=== PATIENT | female | born 1965 | race African-American/Black ===

== ENCOUNTER 2017-12-29 02:15 | Emergency (ER) | payer OTHER ==
[~2017-12-29] VITALS: Ht 149.9 cm; Wt 153.2 kg
[2017-12-29 02:43] LABS: GLUCOSE,POINT OF CARE 246 MG/DL (70-110)
[2017-12-29] MEDS ORDERED: KETOROLAC TROMETHAMINE 30 MG/ML VIAL IVP ONE (02:45)
[2017-12-29] MEDS ORDERED: ASPIRIN 81 MG CHEWABLE TABLET PO ONE (02:45)
[2017-12-29] MEDS ORDERED: INSU100I26 SQ (02:47)
[2017-12-29] MEDS ORDERED: VITAD1000 PO (02:47)
[2017-12-29] MEDS ORDERED: ONDA4 PO (02:47)
[2017-12-29] MEDS ORDERED: ATOR40TA28 PO (02:47)
[2017-12-29] MEDS ORDERED: GABA-529 PO (02:47)
[2017-12-29] MEDS ORDERED: SIME125C81 PO (02:47)
[2017-12-29] MEDS ORDERED: INSNOV SQ (02:47)
[2017-12-29] MEDS ORDERED: METO25XL PO (02:47)
[2017-12-29] MEDS ORDERED: HYDR30CR3 TP (02:47)
[2017-12-29] MEDS ORDERED: OMEG-50 PO (02:47)
[2017-12-29] MEDS ORDERED: AZEL137S8 NASAL (02:47)
[2017-12-29] MEDS ORDERED: ALLO100T PO (02:47)
[2017-12-29] MEDS ORDERED: ALBU8.5H8 IH (02:47)
[2017-12-29] MEDS ORDERED: OMEP20 PO (02:47)
[2017-12-29] MEDS ORDERED: AMLO-511 PO (02:47)
[2017-12-29] MEDS ORDERED: BACL10TA PO (02:47)
[2017-12-29] MEDS ORDERED: ISOS30TA6 PO (02:47)
[2017-12-29] MEDS ORDERED: MONT10TA21 PO (02:47)
[2017-12-29] MEDS ORDERED: ASPI-1182 PO (02:47)
[2017-12-29] MEDS ORDERED: IPRA3AMP4 NEB (02:47)
[2017-12-29] MEDS ORDERED: SENN-175 PO (02:47)
[2017-12-29] MEDS ORDERED: UMEC62.5 IH (02:47)
[2017-12-29 03:43] LABS: BASOPHILS % (AUTO) 0.7 % (0.0-2.0); EOSINOPHILS % (AUTO) 1.1 % (1.0-6.0); HEMATOCRIT 39.3 % (36-46); HEMOGLOBIN 12.2 g/dL (12.0-16.0); LYMPHOCYTES # (AUTO) 1.6 K/uL (1.0-4.8); LYMPHOCYTES % (AUTO) 20.4 % (22.0-44.0); MEAN CORPUSCULAR HEMOGLOBIN 22.9 pg (26.0-34.0); MEAN CORPUSCULAR HGB CONC 30.9 G/dL (31.0-37.0); MEAN CORPUSCULAR VOLUME 74 fL (80-100); MONOCYTES # (AUTO) 0.7 K/uL (0.1-1.0); MONOCYTES % (AUTO) 8.2 % (2.0-9.0); NEUTROPHILS # (AUTO) 5.6 K/uL (1.8-7.7); NEUTROPHILS % (AUTO) 69.6 % (40.0-70.0); PLATELET COUNT (AUTO) 286 K/uL (150-450); RED CELL DISTRIBUTION WIDTH 16.7 % (11.5-14.5)
[2017-12-29 03:51] LABS: ANION GAP 4 mmol/L (8-16); CALCIUM, TOTAL 9.1 mg/dL (8.8-10.5); CARBON DIOXIDE 34 mmol/L (22-29); CHLORIDE 100 mmol/L (98-107); CREATININE 0.98 mg/dL (0.60-1.30); GLOMERULAR FILTR. RATE CALC > 60 mL/min (>60); GLUCOSE,RANDOM 247 mg/dL (70-110); POTASSIUM 3.7 mmol/L (3.5-5.1); SODIUM SERUM 138 mmol/L (136-145); UREA NITROGEN, BLOOD 19 mg/dL (7-18)
[2017-12-29 03:54] LABS: APPEARANCE,URINE CLEAR (CLEAR); BILIRUBIN,URINE NEGATIVE (NEGATIVE); GLUCOSE, URINE (UA) NEGATIVE (NEGATIVE); KETONES,URINE NEGATIVE (NEGATIVE); LEUKOCYTE ESTERASE ,URINE NEGATIVE (NEGATIVE); NITRATE,URINE NEGATIVE (NEGATIVE); OCCULT BLOOD,URINE TRACE (NEGATIVE); PH,URINE 6.5 (5.0-8.0); PROTEIN,URINE NEGATIVE (NEGATIVE); UROBILINOGEN,URINE 0.2 mg/dL (<=1.0)
[2017-12-29 04:04] LABS: BACTERIA,URINE None Seen /HPF (None Seen); RBC,URINE 0-2 /HPF (0-2); SQUAMOUS EPITHELIAL CELL,UR Few /LPF (None Seen); WBC,URINE 0-2 /HPF (0-5)
[2017-12-29 04:08] VITALS: BP 131/72
[2017-12-29 04:10] LABS: B-TYPE NATRIURETIC PEPTIDE < 5 pg/mL (0-100)
[2017-12-29 04:15] LABS: ALANINE AMINOTRANSFERASE 34 U/L (12-78); ALBUMIN 3.5 g/dL (3.4-5.0); ALKALINE PHOSPHATASE 71 U/L (46-116); ASPARTATE AMINOTRANSFERASE 12 U/L (15-37); BILIRUBIN,TOTAL 0.3 mg/dL (0.1-1.0); CREATINE KINASE MB 2.6 ng/mL (0-5); CREATINE KINASE, TOTAL 157 U/L (26-192); TOTAL PROTEIN, SERUM 7.6 g/dL (6.4-8.2)
== END 2017-12-29 05:01 | disposition home or self-care (01) ==
LOC: EMS 02:19
DX: R07.89 Other chest pain (principal); M25.512 Pain in left shoulder; E11.9 Type 2 diabetes mellitus without complications; F32.9 Major depressive disorder, single episode, unspecified; I11.0 Hypertensive heart disease with heart failure; I50.9 Heart failure, unspecified; J44.9 Chronic obstructive pulmonary disease, unspecified; Z88.0 Allergy status to penicillin
CPT/HCPCS: 36415; 71045; 80053; 81001; 82550; 82553; 82962; 83880; 84484; 85025; 93005; 96374; 99285; J1885

== ENCOUNTER 2021-11-24 05:49 | Day surgery (SDC) | payer OTHER ==
[~2021-11-24] VITALS: Ht 152.4 cm; Wt 154.5 kg
[~2021-11-24 05:49] MED LIST: ALBU8.5H8 IH; ALLO-97 PO; AMLO-257 PO; ASPI-1444 PO; ATOR40TA28 PO; AZEL137S8 NASAL; BACL10TA PO; CHOL100018 PO; GABA-1216 PO; HYDR30CR3 TP; INSNOV SQ; INSU100I26 SQ; IPRA3AMP24 NEB; ISOS30TA92 PO; METO25XL PO; MONT-35 PO; OMEG-126 PO; OMEP20 PO; ONDA-104 PO; SENN-277 PO; SIME125C81 PO; SODIUM CHLORIDE 0.9% 1,000 ML IV ONE; UMEC62.5 IH
[2021-11-24 06:16] LABS: COVID AG,FIA SOURCE NASAL SWAB
[2021-11-24] MEDS ORDERED: SODIUM CHLORIDE 0.9% 1,000 ML IV ONE (06:30)
[2021-11-24] MEDS ORDERED: SODIUM CHLORIDE 0.9% 1,000 ML ONE (06:50)
[2021-11-24 07:36] LABS: GLUCOMETER DEV NAME(LOC) SDS.; GLUCOSE,POINT OF CARE 353 MG/DL (70-110)
[2021-11-24] MEDS ORDERED: FLUT16H NASAL (09:06)
[2021-11-24] MEDS ORDERED: FERR325T27 PO (09:06)
[2021-11-24] MEDS ORDERED: RIVA20TA PO (09:06)
[2021-11-24] MEDS ORDERED: BUME1TAB34 PO (09:06)
[2021-11-24] MEDS ORDERED: CETRIZINE PO (09:06)
[2021-11-24] MEDS ORDERED: CYCL-448 PO (09:06)
== END 2021-11-24 08:00 | disposition home or self-care (01) ==
LOC: SURGERY 05:49
PROVIDERS: ATTEND Internal Medicine Critical Care Medicine
DX: R05.3 Chronic cough (principal); Z53.8 Procedure and treatment not carried out for other reasons; R91.1 Solitary pulmonary nodule; J98.09 Other diseases of bronchus, not elsewhere classified; J98.8 Other specified respiratory disorders; Z79.899 Other long term (current) drug therapy; Z98.890 Other specified postprocedural states
CPT/HCPCS: 82962; 87426; C9803; J7030